=== PATIENT | female | born 1960 ===

== ENCOUNTER 2017-04-20 09:47 | Emergency (ER) | payer OTHER ==
[2017-04-20 10:28] VITALS: BP 121/78; PULSE 86; RESP 18; TEMP 97; O2SAT 99
--- NOTE | 2017-04-20 10:56 | ED PDOC ---
Lower Extremity Pain/Injury Time Seen by Provider: 04/20/17 10:43 Chief Complaint (Nursing): Lower Extremity Problem/Injury Chief Complaint (Provider): Left knee pain History Per: Patient History/Exam Limitations: no limitations Onset/Duration Of Symptoms: Days (2 months) Current Symptoms Are (Timing): Still Present Additional Complaint(s): Pt. twisted left knee 2 months ago getting off the bus and has pain since then. Had time today so came to get checked out for it. Has been having pain to the left side fo the left knee on moving and walking. No calf, hip, back pain. No numbness, tingles. Past Medical History Reviewed: Nursing Documentation, Vital Signs Vital Signs: Last Vital Signs Temp 97 F L 04/20/17 10:26 Pulse 86 04/20/17 10:26 Resp 18 04/20/17 10:26 BP 121/78 04/20/17 10:26 Pulse Ox 99 04/20/17 10:26 - Medical History PMH: No Chronic Diseases - Surgical History Surgical History: No Surg Hx - Family History Family History: States: Unknown Family Hx - Living Arrangements Living Arrangements: With Family - Immunization History Hx Tetanus Toxoid Vaccination: No Hx Influenza Vaccination: No Hx Pneumococcal Vaccination: No - Home Medications Home Medications: Ambulatory Orders Medication Instructions Recorded Naproxen 375 mg PO BID PRN #20 tablet 12/21/16 Ibuprofen [Motrin] 600 mg PO TID 7 Days tab 04/20/17 - Allergies Allergies/Adverse Reactions: Allergies Allergy/AdvReac Type Severity Reaction Status Date / Time No Known Allergies Allergy Verified 12/21/16 10:28 Review of Systems Constitutional: Negative for: Weakness Cardiovascular: Negative for: Chest Pain Respiratory: Negative for: Shortness of Breath Musculoskeletal: Positive for: Leg Pain. Negative for: Neck Pain, Shoulder Pain , Arm Pain, Back Pain Neurological: Negative for: Weakness, Numbness, Dizziness Physical Exam - Reviewed Nursing Documentation Reviewed: Yes Vital Signs Reviewed: Yes - Physical Exam Appears: Positive for: Well, Non-toxic, No Acute Distress Skin: Positive for: Normal Color, Warm, DRY Neck: Positive for: Normal, Painless ROM Cardiovascular/Chest: Positive for: Regular Rate, Rhythm Respiratory: Positive for: CNT, Normal Breath Sounds Pulses-Dorsalis Pedis (L): 2+ Back: Positive for: Normal Inspection. Negative for: L CVA Tenderness, R CVA Tenderness Extremity: Positive for: Normal ROM, Tenderness (L lateral knee mild; no laxity ; no swelling). Negative for: Pedal Edema, Calf Tenderness Neurologic/Psych: Positive for: Alert, Oriented. Negative for: Motor/Sensory Deficits - ECG O2 Sat by Pulse Oximetry: 99 Pulse Ox Interpretation: Normal - Radiology X-Ray: Read By Radiologist X-Ray Interpretation: No Acute Disease - Progress ED Course And Treament: 1221: Stable. AAOx3. Pain free. Fu with pcp. Ambulated with no issues. Disposition - Clinical Impression Clinical Impression: Knee pain - Patient ED Disposition Is Patient to be Admitted: No - Disposition Referrals: [facility] [place] [Outside] - 04/21/17 [facility] [place] [Outside] - 04/21/17 Disposition: Routine/Home Disposition Time: 12:22 Condition: STABLE Additional Instructions: Return if not better in 3 days. Prescriptions: Ibuprofen [Motrin] 600 mg PO TID 7 Days tab Instructions: Knee Pain
--- NOTE | 2017-04-20 11:19 | RAD ---
PROCEDURE: Left Knee Radiographs. HISTORY: Pain. COMPARISON: None. FINDINGS: BONES: Normal. No fracture. JOINTS: Tiny posterior patella osteophytes are seen. JOINT EFFUSION: None. OTHER FINDINGS: None. IMPRESSION: No evidence of acute displaced fracture nor dislocation. Tiny posterior patellar osteophytes.
== END 2017-04-20 13:11 | disposition home or self-care (01) ==
LOC: H.ER 09:47
DX: M25.562 Pain in left knee (principal)